=== PATIENT | male | born 1955 | race Caucasian/White ===

== ENCOUNTER 2021-02-25 10:25 | Emergency (ER) | payer SELFPAY ==
--- NOTE | 2021-02-25 10:46 | EDM.PDOC ---
ED HPI GENERAL MEDICAL PROBLEM - General Stated Complaint: FELL OFF LADDER Time Seen by Provider: 02/25/21 10:35 Source of Information: Reports: Patient History Limitations: Reports: No Limitations - History of Present Illness INITIAL COMMENTS - FREE TEXT/NARRATIVE: This 65 yo male patient reports to the ED due to right hip/groin pain and right wrist pain. The patient reports he was lifting a plastic roof off a shed while on the second step of a ladder when he lost balance and fell. The patient reports he fell directly on his right hip and must have attempted to catch himself with his right arm. The patient did ice his wrist and hip right after the fall, but when his pain continued he came to the ED. The patient reports he fell at about 0900 this morning. Onset: Today Onset Date: 02/25/21 Onset Time: 09:00 Duration: Constant Location: Reports: Upper Extremity, Right, Lower Extremity, Right Quality: Reports: Ache, Dull Severity: Moderate Improves with: Reports: None Worsens with: Reports: None Context: Reports: Activity Associated Symptoms: Reports: No Other Symptoms Treatments AESTHETICIAN: Reports: NSAIDS Right Hip Pain Score (Numeric/FACES): 5 - Related Data Allergies Allergy/AdvReac Type Severity Reaction Status Date / Time No Known Allergies Allergy Verified 02/25/21 10:36 Home Meds: Home Meds . [No Known Home Meds] 02/25/21 [History] Past Medical History - Past Health History Medical/Surgical History: Denies Medical/Surgical History Social & Family History - Tobacco Use Tobacco Use Status *Q: Never Tobacco User Second Hand Smoke Exposure: No - Caffeine Use Caffeine Use: Reports: Coffee - Recreational Drug Use Recreational Drug Use: No Review of Systems - Review of Systems Review Of Systems: Comprehensive ROS is negative, except as noted in HPI. ED EXAM, GENERAL - Physical Exam Exam: See Below Exam Limited By: No Limitations General Appearance: Alert, WD/WN, Moderate Distress Eye Exam: Bilateral Eye: EOMI, Normal Inspection, PERRL Ears: Normal External Exam, Normal Canal, Hearing Grossly Normal, Normal TMs Nose: Normal Inspection, Normal Mucosa, No Blood Throat/Mouth: Normal Inspection, Normal Lips, Normal Teeth, Normal Gums, Normal Oropharynx, Normal Voice, No Airway Compromise Head: Atraumatic, Normocephalic Neck: Normal Inspection, Supple, Non-Tender, Full Range of Motion Respiratory/Chest: No Respiratory Distress, Lungs Clear, Normal Breath Sounds, No Accessory Muscle Use, Chest Non-Tender Cardiovascular: Normal Peripheral Pulses, Regular Rate, Rhythm, No Edema, No Gallop, No JVD, No Murmur, No Rub GI/Abdominal: Normal Bowel Sounds, Soft, Non-Tender, No Organomegaly, No Distention, No Abnormal Bruit, No Mass (Male) Exam: Deferred Rectal (Males) Exam: Deferred Back Exam: Normal Inspection, Full Range of Motion, NT Extremities: Arm Pain (right wrist), Leg Pain (right hip and groin) Neurological: Alert, Oriented, CN II-XII Intact, Normal Cognition, Normal Gait, Normal Reflexes, No Motor/Sensory Deficits Psychiatric: Normal Affect, Normal Mood Skin Exam: Warm, Dry, Intact, Normal Color, No Rash Lymphatic: No Adenopathy ED TRAUMA PROCEDURES - Splinting Right Upper Extremity Pre-Procedure NV Status: Normal Post-Procedure NV Status: Normal Splint Material: Fiberglass Splint Design: Volar Applied & Form Fitted By: Provider Provider Post-Splint Application NV Check: NV Status Normal Complications: No Course - Vital Signs Last Recorded V/S: Last Vital Signs Temp 97.8 F 02/25/21 10:36 Pulse 71 02/25/21 10:36 Resp 16 02/25/21 10:36 BP 143/73 H 02/25/21 10:36 Pulse Ox 98 02/25/21 10:36 Departure - Departure Time of Disposition: 11:36 Disposition: Home, Self-Care 01 Condition: Fair Clinical Impression: Fracture of right distal radius Qualifiers: Encounter type: initial encounter Fracture type: closed Fracture morphology: other fracture Qualified Code(s): S52.591A - Other fractures of lower end of right radius, initial encounter for closed fracture Contusion of right hip Qualifiers: Encounter type: initial encounter Qualified Code(s): S70.01XA - Contusion of right hip, initial encounter - Discharge Information *PRESCRIPTION DRUG MONITORING PROGRAM REVIEWED*: Not Applicable *COPY OF PRESCRIPTION DRUG MONITORING REPORT IN PATIENT KIRSTY: Not Applicable Instructions: Radial Fracture, Cast or Splint Care, Adult, [id number] Forms: ED Department Discharge Care Plan Goals: The patient was advised of the examination and x-ray results during the visit. The patient's right wrist was placed in a fiberglass splint for immobilization. The patient was encouraged to rest, ice and elevate the extremity over the next 24 hours. The patient should follow-up with an lean specialist in about 1 week for continued evaluation and further management. The patient was discharged with a script for Toradol (10 mg) #20 to take 1 by mouth every 6 hours. If the patient has any additional symptoms or concerns, the patient should either return to the emergency department or visit his primary care facility. Sepsis Event Note (ED) - Evaluation Sepsis Screening Result: No Definite Risk - Focused Exam Vital Signs: Vital Signs Temp Pulse Resp BP Pulse Ox 02/25/21 10:36 97.8 F 71 16 143/73 H 98
--- NOTE | 2021-02-25 11:07 | CR ---
PROCEDURE INFORMATION: Exam: XR Right Hip Exam date and time: 02/25/2021 10:44 AM Age: 65 years old Clinical indication: Hip pain; Right hip; Additional info: Fall from 2nd step off ladder TECHNIQUE: Imaging protocol: XR Right hip. Views: 2 or 3 views hip with pelvis when performed. COMPARISON: No relevant prior studies available. FINDINGS: Bones/joints: Unremarkable. No acute fracture. Soft tissues: Unremarkable. IMPRESSION: No acute findings.
--- NOTE | 2021-02-25 11:09 | CR ---
PROCEDURE INFORMATION: Exam: XR Right Wrist Exam date and time: 02/25/2021 10:56 AM Age: 65 years old Clinical indication: Injury or trauma; Fall; Blunt trauma (contusions or hematomas); Wrist; Right; Additional info: Fall from 2nd step off ladder TECHNIQUE: Imaging protocol: XR Right wrist. Views: 3 or more views. COMPARISON: No relevant prior studies available. FINDINGS: Bones/joints: There is a vertical fracture of the distal radius metaphysis and articular surface. No angulation or displacement. No significant impaction. The ulna is intact. Soft tissues: Soft tissue swelling. IMPRESSION: -punch fracture of the distal radius.
== END 2021-02-25 12:16 | disposition home or self-care (01) ==
LOC: DL.ED 10:25
DX: S52.591A Other fractures of lower end of right radius, initial encounter for closed fracture (principal); S70.01XA Contusion of right hip, initial encounter; W01.0XXA Fall on same level from slipping, tripping and stumbling without subsequent striking against object, initial encounter
CPT/HCPCS: 29125; 73110-RT; 99283; 99284

== ENCOUNTER 2022-04-30 11:13 | Emergency (ER) | payer MEDICARE, OTHER ==
[2022-04-30] MEDS ORDERED: Doxycycline Monohydrate 100 MG Cap PO ONE ×2 (11:14→11:57)
[2022-04-30] MEDS ORDERED: Amoxicillin 500 MG Cap PO ONE ×2 (11:14→11:57)
[2022-04-30] MEDS ORDERED: methylPREDNISolone Sodium Succinate 125 MG/2 ML SDV IVPUSH ONE (11:37)
[2022-04-30] MEDS ORDERED: diphenhydrAMINE 50 MG/ML SDV IVPUSH ONE (11:37)
[2022-04-30] MEDS ORDERED: Famotidine 20 MG/2 ML SDV IVPUSH ONE (11:37)
[2022-04-30] MEDS ORDERED: Sodium Chloride 0.9% 10 ML Syringe FLUSH PRN (11:37)
[2022-04-30] MEDS ORDERED: Doxycycline Monohydrate 100 MG Cap ONE (12:26)
[2022-04-30] MEDS ORDERED: Amoxicillin 500 MG Cap ONE (12:26)
== END 2022-04-30 12:38 | disposition home or self-care (01) ==
LOC: DL.ED 11:13
DX: L03.116 Cellulitis of left lower limb (principal); T36.8X5A Adverse effect of other systemic antibiotics, initial encounter
CPT/HCPCS: 96374; 96375; 99283; 99283-25; A9270-GY; J1200; J2930; J3490